=== PATIENT | female | born 1995 | race Caucasian/White ===

== ENCOUNTER → 2019-07-21 | Outpatient (CLI) | payer BC | LOC: LAB 16:47 | DX: N39.0 Urinary tract infection, site not specified (principal) ==

== ENCOUNTER → 2020-10-17 | Outpatient (CLI) | payer BC | LOC: LAB 10:22 | DX: U07.1 COVID-19 (principal) ==

== ENCOUNTER → 2021-11-10 | Outpatient (CLI) | payer BC | LOC: LAB 15:37 | DX: N91.2 Amenorrhea, unspecified (principal) ==

== ENCOUNTER → 2024-01-08 | Outpatient (CLI) | payer BC | LOC: LAB 16:08 | DX: N91.2 Amenorrhea, unspecified (principal) ==